=== PATIENT | female | born 1955 | race Caucasian/White ===

== ENCOUNTER 2017-02-25 05:40 | Emergency (ER) | payer BC ==
--- NOTE | 2017-02-25 07:50 | ER ---
DATE SEEN: 02/25/2017 TIME SEEN: 6:30 a.m. CHIEF COMPLAINT: Flashes. HISTORY OF PRESENT ILLNESS: This is a 61-year-old female complaining of light flashes on the right eye. This started last night. She slept, but when woke up at 3 in the morning, had the same symptoms with no decreased vision or headaches. When she closes her eye, it gets worse. She has a history of migraine headaches, but reports no similar episodes in the past. PAST MEDICAL HISTORY: Type 2 diabetes, hypertension, hyperlipidemia. She has a history of myopia and wears glasses. CURRENT MEDICATIONS: Please see the electronic record. ALLERGIES: Statins, propoxyphene, Celebrex, and acetaminophen. PHYSICAL EXAMINATION: VITAL SIGNS: Her blood pressure is 145/83, pulse is 96, and temperature 98.2. HEAD: Normocephalic. NECK: No JVD. No carotid bruits. EYES: Pupils are equal and reactive to light and accommodation. Extraocular movements are intact. Visual acuity is 20/50 bilaterally with glasses. Visual resendez by confrontation was normal bilaterally. NEUROLOGIC: Cranial nerves 2 through 12 are grossly intact. LABORATORY DATA: None. CT of the head negative, unremarkable. FINAL IMPRESSION: Floaters, right eye. PLAN: The etiology is undetermined. The fact that she still has intact visual acuity and visual field has no defects. Suggests less emergent condition and I advised her to see an latrine cleaner this morning at either [facility] or [facility]. If symptoms get worse, to go to the ER in [place]. /[id number] SHARIFA/CARIE
== END 2017-02-25 06:50 | disposition home or self-care (01) ==
LOC: FB.ED 05:40
DX: H43.391 Other vitreous opacities, right eye (principal); E11.9 Type 2 diabetes mellitus without complications; I10 Essential (primary) hypertension; G43.909 Migraine, unspecified, not intractable, without status migrainosus; Z88.6 Allergy status to analgesic agent; Z88.8 Allergy status to other drugs, medicaments and biological substances
CPT/HCPCS: 70450; 99284